=== PATIENT | female | born 1975 | race Caucasian/White ===

== ENCOUNTER 2019-12-18 08:09 | Outpatient (CLI) | payer BC, SELFPAY ==
--- NOTE | 2019-12-18 08:16 | MM_ITS ---
WS: [id number] BILATERAL SCREENING MAMMOGRAM WITH DENNY DISPLACEMENT VIEWS. CAD PERFORMED. HISTORY: SCREENING COMPARISON: 11/07/2018 Bilateral craniocaudal and mediolateral like views are performed. Denny displacement views in CC and MLO projection also performed. Breasts composition: There are scattered areas of fibroglandular density. Implants are prepectoral. Implants are intact. There is numerous calcifications scattered throughout each breast. No change in the parenchymal pattern. MM/[place] [id number] IMPRESSION: BI-RADS: 2-Benign FOLLOW-UP: 1 Year Follow-up
== END 2019-12-18 08:10 | disposition home or self-care (01) ==
LOC: RADSHAW 08:12
PROVIDERS: Family Provider Nurse Practitioner Family; PCP Nurse Practitioner Family; Visit Provider Nurse Practitioner Family
DX: Z12.31 Encounter for screening mammogram for malignant neoplasm of breast (principal)
CPT/HCPCS: 77067

== ENCOUNTER 2022-03-05 14:02 | Outpatient (CLI) | payer OTHER, SELFPAY ==
--- NOTE | 2022-03-05 14:11 | MM_ITS ---
WS: [id number] BILATERAL 3D TOMOSYNTHESIS DIGITAL SCREENING MAMMOGRAPHY WITH CAD CLINICAL INFORMATION: SCREENING HISTORY: Screening mammogram. Pain and soreness LEFT breast. COMPARISON: December 18, 2019 TECHNIQUE: Bilateral CC and MLO views. FINDINGS: Bilateral breast implants appear intact. A few incidental punctate and clustered calcificat ions are similar in appearance. Scattered fibroglandular densities bilaterally. No suspicious focal mass, asymmetry, calcifications, or architectural distortion. No evidence of malignancy. MM/[place] [id number] IMPRESSION: BI-RADS: 2-Benign FOLLOW UP: 1 Year Follow-up Recommend return to annual screening mammography.
== END 2022-03-05 14:03 | disposition home or self-care (01) ==
PROVIDERS: Family Provider Nurse Practitioner Family; PCP Nurse Practitioner Family; Visit Provider Plastic Surgery
DX: Z12.31 Encounter for screening mammogram for malignant neoplasm of breast (principal)
CPT/HCPCS: 77063; 77067

== ENCOUNTER 2022-03-07 18:17 | Emergency (ER) | payer OTHER, SELFPAY ==
[2022-03-07 18:34] VITALS: BP 109/67; PULSE 103; RESP 16; TEMP 36.6; O2SAT 100; BMI 24.0
--- NOTE | 2022-03-07 18:42 | XRR_ITS ---
PROCEDURE INFORMATION: Exam: XR Right Ankle Exam date and time: 03/07/2022 6:51 PM Age: 46 years old Clinical indication: Pain; Ankle; Right; Additional info: Rolled ankle injury TECHNIQUE: Imaging protocol: XR Right ankle. Views: 3 or more views. COMPARISON: No relevant prior studies available. FINDINGS: Bones/joints: Distal fibular metaphyseal nondisplaced fracture with overlying soft tissue swelling, somewhat sclerotic margins are seen at the fracture site perhaps reflecting a chronic etiology, please correlate clinically. Fifth metatarsal base nondisplaced fracture suspected. Soft tissues: See Bones/joints finding. XR/XR ankle RT min 3V* [id number] IMPRESSION: 1. Distal fibular metaphyseal nondisplaced fracture with overlying soft tissue swelling, somewhat sclerotic margins are seen at the fracture site perhaps reflecting a chronic etiology, please correlate clinically. 2. Fifth metatarsal base nondisplaced fracture suspected.
--- NOTE | 2022-03-07 18:42 | XRR_ITS ---
PROCEDURE INFORMATION: Exam: XR Right Foot Exam date and time: 03/07/2022 6:51 PM Age: 46 years old Clinical indication: Pain; Ankle; Right; Additional info: Rolled ankle TECHNIQUE: Imaging protocol: XR Right foot. Views: 3 or more views. COMPARISON: No relevant prior studies available. FINDINGS: Bones/joints: Subtle 5th metatarsal base fracture suspected, please correlate clinically. Soft tissues: Normal. XR/XR foot RT min 3V* [id number] IMPRESSION: Subtle 5th metatarsal base fracture suspected, please correlate clinically.
--- NOTE | 2022-03-07 18:52 | PC.NURSE ---
1840 Eval by EDP. Xrays ordered 1850 Xrays done in triage/VF
--- NOTE | 2022-03-07 18:55 | ED_ITS ---
HPI - Extremity Problem General: Chief complaint: Extremity Injury, Lower Stated complaint: injured R ankle Time Seen by Provider: 03/07/22 18:51 History of Present Illness: Patient is a 46-year-old female comes to the ED with right ankle injury. Injury occurred just prior to arrival. Patient was playing basketball andshe stepped on another person's foot causing her to roll her right ankle. She felt a pop when injury occurred. She rates her pain currently an 8 out of 10. She says any range of motion in ankle causes worsening pain. She is unable to weight-bear on right foot due to pain. She took 800 mg of ibuprofen just before coming to the ED. Associated symptoms: Deny chest pain, fever(s) or rash Review of Systems Const: Denies: fever(s), chills or fatigue Eyes: Denies: change in vision or eye discomfort ENMT: Denies: throat pain, odynophagia, nasal discharge or nasal congestion Card: Denies: chest pain, palpitations, edema, swelling of feet/ankles, dyspnea on exertion or orthopnea Resp: Denies: dyspnea, productive cough or non-productive cough GI: Denies: abdominal pain, nausea, vomiting, diarrhea, constipation or hematochezia : Denies: flank pain, dysuria or hematuria Musc: Reports: extremity pain (right ankle pain), extremity swelling (right ankle) and limited range of motion (right ankle); Denies: neck pain or back pain Skin/Breast: Denies: rash or new lesions Neuro: Denies: headache(s), numbness in extremities or weakness in extremities [facility] ED PFSH: Medical History History of fracture of right ankle No pertinent family history Physical Exam Const: COMMON NORMALS: patient oriented x3 and alert GENERAL APPEARANCE: cooperative HENMT: COMMON NORMALS: normocephalic HEAD & SCALP: normocephalic MOUTH: Normal oral and palatal mucosa present THROAT: posterior oropharynx normal and uvula midline Neck/C-Spine: COMMON NORMALS: supple GENERAL: Yes normal visual inspection Resp: COMMON NORMALS: normal respiratory effort, No retractions, No use of accessory muscles and clear to auscultation bilaterally AUSCULTATION: clear to auscultation bilaterally Cardio: COMMON NORMALS: regular rate, regular rhythm, S1 normal heart sound present, S2 normal heart sound present, No gallops present (Cardio), No clicks present (Cardio), No murmurs present (Cardio) and Peripheral pulses 2+ throughout RATE: regular rate RHYTHM: regular rhythm HEART SOUNDS: S1 normal heart sound present and S2 normal heart sound present PERIPHERAL PULSES: Peripheral pulses 2+ throughout GI: COMMON NORMALS: Normal to inspection, nondistended, normoactive bowel sounds present, Soft to palpation, non-tender and no masses PALPATION: Yes Soft to palpation : COMMON NORMALS: Yes no CVA tenderness BLADDER/KIDNEY EXAM: Yes no CVA tenderness Back/Pelvis: COMMON NORMALS: no CVA tenderness Extremity: NARRATIVE EXTREMITY EXAM: Right ankle?no visible deformity noted. Mild swelling and no ecchymosis seen. Tenderness over lateral malleolus. Limited range of motion due to pain. Neurovascular tact. Right foot?tenderness over lateral aspect of midfoot near fifth metatarsal. GENERAL: Yes normal exam except as noted Neuro: COMMON NORMALS: patient oriented x3 and moves all extremities SENSORIUM/ORIENTATION: Yes alert Skin: GENERAL SKIN EXAM: dry skin Course Vital Signs: Vital signs: Vital Signs Temperature 97.8 F 03/07/22 18:34 Pulse Rate 103 H 03/07/22 18:34 Respiratory Rate 16 03/07/22 18:34 Blood Pressure 109/67 03/07/22 18:34 Pulse Oximetry 100 03/07/22 18:34 MDM - Extremity (Nontraumatic) Medical Decision Making Patient is a 46-year-old female comes to the ED with right foot and ankle injury. History of an old right ankle fracture. Patient says she was playing b asketball and stepped on another player's foot causing her to roll her right ankle. She felt a pop. Vital stable. She has some swelling over lateral malleolus along with tenderness. No visible deformity noted. Limited range of motion due to pain. Neurovascular tact. She also has some tenderness over fifth metatarsal of the foot. X-ray of right ankle and foot show 1/5 metatarsal base fracture along with a distal fibular nondisplaced fracture. Patient was put in a posterior leg splint with stirrup and given crutches. She was discharged home with a prescription of [place] for pain. I placed an order with case management for patient be referred to Ortho for follow-up on ankle and foot fracture. Return to ED precautions given. Patient understood and agreed with plan. Lab Data Radiology Impressions Ankle X-Ray 03/07/22 18:42 IMPRESSION: 1. Distal fibular metaphyseal nondisplaced fracture with overlying soft tissue swelling, somewhat sclerotic margins are seen at the fracture site perhaps reflecting a chronic etiology, please correlate clinically. 2. Fifth metatarsal base nondisplaced fracture suspected. Foot X-Ray 03/07/22 18:42 IMPRESSION: Subtle 5th metatarsal base fracture suspected, please correlate clinically. Discharge Plan Discharge Patient Disposition: Home Clinical Impression: Ankle fracture Qualifiers: Encounter type: initial encounter Fracture type: closed Laterality: right Qualified Code(s): S82.891A - Other fracture of right lower leg, initial encounter for closed fracture Metatarsal fracture Qualifiers: Encounter type: initial encounter Metatarsal bone: fifth Fracture type: closed Fracture alignment: nondisplaced Laterality: right Qualified Code(s): S92.354A - Nondisplaced fracture of fifth metatarsal bone, right foot, initial encounter for closed fracture Condition: Stable Discharge Orders: Discharge ED (Routine); Ordered 03/07/22 Ordered By: Ac Sawant Referrals: Payton Penaloza APN [Primary Care Provider] - Discharge Diet: Regular Discharge Activity: Limit activity as instructed and Use walker/crutches as instructed Patient Instructions: Ankle Fracture (ED), Foot Fracture in Adults (ED), Opioid Safety Activity Restrictions/Additional Instructions: Follow-up with medical provider as directed. Case management should be contacting you in the next couple days to set up an appointment with Ortho for follow-up on fracture. Take medications as prescribed. Use crutches and no weightbearing until cleared by Ortho. Keep splint on and dry. Return to the ER or your medical provider if condition worsens. Please read and understand discharge instructions. Thank you for choosing [facility] for your healthcare needs today. Please realize this is an emergency room and that we are providing you with a medical screening exam and this may not be complete and all inclusive of all the testing and or work up that you may need to determine your ailment or severity of your illness. It is very important that you follow up as instructed or that you return to the Emergency Department should you have concerns or if your condition changes or worsens in any way. Coding Level of Care Code ED Fur Nailer for Malcolm Fwsony Exam Comprehensive
[2022-03-07] MEDS: ondansetron 4 MG Tablet PO ×2 (19:07→22:44)
[2022-03-07] MEDS: HYDROcodone-acetaminophen 7.5-325 mg Tablet 1 TAB PO ×2 (19:07→22:42)
--- NOTE | 2022-03-10 18:00 | DCPLANNER ---
Addendum entered by Asiya Forman 03/19/22 16:17: human resources training manager was told that clinic was unable to reach patient to schedule a follow up appointment. Original Note: human resources training manager had message to schedule a follow up appointment for patient with ortho. human resources training manager sent patients information to the front office staff of ortho. Patients information will be printed and reviewed. Clinic will call patient with appointment information.
== END 2022-03-07 22:46 | disposition home or self-care (01) ==
PROVIDERS: Emergency Provider Physician Assistant; PCP Nurse Practitioner Family
DX: S99.911A Unspecified injury of right ankle, initial encounter (principal)
CPT/HCPCS: 29515; 73610; 73630; 99283; E0114; Q0162

== ENCOUNTER 2023-03-25 13:55 | Outpatient (CLI) | payer OTHER, SELFPAY ==
--- NOTE | 2023-03-25 14:05 | MM_ITS ---
WS: [id number] BILATERAL 3D TOMOSYNTHESIS DIGITAL SCREENING MAMMOGRAPHY WITH CAD CLINICAL INFORMATION: SCREENING HISTORY: Screening mammogram. No current complaints. COMPARISON: 2021 TECHNIQUE: Bilateral CC and MLO views. FINDINGS: Interval removal of bilateral breast implants. The breasts are composed of heterogeneous fibroglandular density tissue, which can limit the detectio n of small underlying mass lesions. No suspicious mass, asymmetry, calcifications, or architectural d istortion. No evidence of malignancy. Incidental punctate and clustered calcifications. MM/[place] [id number] IMPRESSION: BI-RADS: 2-Benign FOLLOW UP: 1 Year Follow-up Recommend return to annual screening mammography.
== END 2023-03-25 13:56 | disposition home or self-care (01) ==
LOC: RAD 13:57
PROVIDERS: PCP Nurse Practitioner Family; Visit Provider Nurse Practitioner Family
DX: Z12.31 Encounter for screening mammogram for malignant neoplasm of breast (principal)
CPT/HCPCS: 77063; 77067

== ENCOUNTER 2023-05-30 07:57 | Outpatient (CLI) | payer OTHER, SELFPAY ==
--- NOTE | 2023-05-30 08:30 | FL_ITS ---
WS: [id number] FL barium swallow modifd [id number] REASON FOR EXAM: Trouble swallowing, choking FLUOROSCOPY TIME: 1min [id number] # OF SPOT FILMS: None FINDINGS: Examination was supervised by the speech therapy department. The patient was examined in the upright lateral sitting position. The swallowing of varying consisten cy barium was monitored fluoroscopically and video recorded. Detailed evaluation and report of the swallowing will be rendered by the speech therapy department. FL/FL barium swallow modifd [id number] IMPRESSION: Modified barium swallow as above.
== END 2023-05-30 07:58 | disposition home or self-care (01) ==
PROVIDERS: PCP Nurse Practitioner Family; Visit Provider Surgery
DX: R13.10 Dysphagia, unspecified (principal)
CPT/HCPCS: 74230; 92611

== ENCOUNTER → 2023-10-07 11:40 | Outpatient (BNVA) | payer OTHER, SELFPAY | PROVIDERS: PCP Nurse Practitioner Family; Visit Provider Nurse Practitioner | DX: R39.9 Unspecified symptoms and signs involving the genitourinary system (principal) | CPT/HCPCS: 81000; 87077; 87086; 87184 ==

== ENCOUNTER 2024-05-04 13:00 | Outpatient (CLI) | payer OTHER, MEDICAID, SELFPAY ==
--- NOTE | 2024-05-04 12:46 | MM_ITS ---
WS: [id number] BILATERAL 3D TOMOSYNTHESIS DIGITAL SCREENING MAMMOGRAPHY WITH CAD CLINICAL INFORMATION: SCREENING HISTORY: Screening mammogram. No current complaints. COMPARISON: 2022 TECHNIQUE: Bilateral CC and MLO views. FINDINGS: The breasts are composed of heterogeneous fibroglandular density tissue, which can limit the detectio n of small underlying mass lesions. No suspicious mass, asymmetry, calcifications, or architectural d istortion. No evidence of malignancy. Stable incidental punctate calcifications. MM/[place] [id number] IMPRESSION: BI-RADS: 2-Benign FOLLOW UP: 1 Year Follow-up Recommend return to annual screening mammography.
== END 2024-05-04 13:01 | disposition home or self-care (01) ==
PROVIDERS: PCP Nurse Practitioner Family; Visit Provider Nurse Practitioner Family
DX: Z12.31 Encounter for screening mammogram for malignant neoplasm of breast (principal); R92.323 Mammographic fibroglandular density, bilateral breasts; R92.1 Mammographic calcification found on diagnostic imaging of breast
CPT/HCPCS: 77063; 77067

== ENCOUNTER 2025-05-06 13:32 | Outpatient (CLI) | payer MEDICAID, SELFPAY ==
--- NOTE | 2025-05-06 13:39 | MM_ITS ---
WS: [id number] BILATERAL 3D TOMOSYNTHESIS DIGITAL SCREENING MAMMOGRAPHY WITH CAD CLINICAL INFORMATION: SCREENING HISTORY: Screening mammogram. No current complaints. COMPARISON: 2023 TECHNIQUE: Bilateral CC and MLO views. FINDINGS: The breasts are composed of heterogeneous fibroglandular density tissue, which can limit the detection of small underlying mass lesions. 9 mm spiculated asymmetric density best seen on MLO view appears more distinct compared to previous. Recommend further evaluation with RIGHT breast diagnostic mammography and ultrasound. This is near the 10 to 11 o'clock position anterior RIGHT breast LEFT breast is unremarkable. MM/MM [facility] tomosynthesis [id number] IMPRESSION: DENSITY: There are scattered areas of fibroglandular density. BI-RADS: 0 - Incomplete: Need additional imaging evaluation FOLLOW UP: Need Additional Imaging Recommend RIGHT breast diagnostic mammography and ultrasound if persistent.
== END 2025-05-06 13:33 | disposition home or self-care (01) ==
LOC: RAD 13:33
PROVIDERS: PCP Nurse Practitioner Family; Visit Provider Nurse Practitioner Family
DX: Z12.31 Encounter for screening mammogram for malignant neoplasm of breast (principal); R92.333 Mammographic heterogeneous density, bilateral breasts; N63.11 Unspecified lump in the right breast, upper outer quadrant
CPT/HCPCS: 77063; 77067

== ENCOUNTER 2025-05-27 12:18 | Outpatient (CLI) | payer MEDICAID, SELFPAY ==
--- NOTE | 2025-05-27 12:25 | MM_ITS ---
WS: [id number] RIGHT 3D TOMOSYNTHESIS DIGITAL MAMMOGRAPHY WITH CAD CLINICAL INFORMATION: ABNORMAL MAMMOGRAM HISTORY: Additional views COMPARISON: 05/06/2025 TECHNIQUE: 3 views of the right breast were obtained. FINDINGS: Scattered fibroglandular densities of the right breast. Previously described 9 mm asymmetric density partially compresses out on the spot compression views. Ultrasound described below. ULTRASOUND BREAST RIGHT TECHNIQUE: Ultrasound right breast focused area of concern. CLINICAL INFORMATION: ABNORMAL MAMMOGRAM FINDINGS: Ultrasound RIGHT breast area of concern at the 10 to 11 o'clock position. Dense underlying parenchymal tissue. No suspicious cystic or solid lesions. No other suspicious findings. MM/MM diag RT tomosynthesis [id number] IMPRESSION: DENSITY: There are scattered areas of fibroglandular density. BI-RADS: 2 - Benign. FOLLOW UP: 1 Year Follow-up Recommend return to annual screening mammography.
== END 2025-05-27 12:19 | disposition home or self-care (01) ==
LOC: RAD 12:18
PROVIDERS: PCP Nurse Practitioner Family; Visit Provider Nurse Practitioner Family
DX: R92.8 Other abnormal and inconclusive findings on diagnostic imaging of breast (principal); R92.321 Mammographic fibroglandular density, right breast
CPT/HCPCS: 76642; 77061; G0279